=== PATIENT | female | born 1990 | race Caucasian/White ===

== ENCOUNTER 2024-02-05 15:09 | Emergency (ER) | payer OTHER ==
[2024-02-05 15:16] VITALS: BP 126/70; PULSE 62; RESP 18; TEMP 98.4; BMI 28.5
[2024-02-05 16:02] LABS: URINE APPEARANCE CLEAR; URINE BILIRUBIN NEGATIVE (NEGATIVE); URINE COLOR YELLOW; URINE GLUCOSE (UA) NEGATIVE (NEGATIVE); URINE KETONE NEGATIVE (NEGATIVE); URINE LEUK ESTERASE NEGATIVE (NEGATIVE); URINE NITRITE NEGATIVE (NEGATIVE); URINE PROTEIN NEGATIVE (NEGATIVE)
[2024-02-05 16:19] LABS: BASO % 0.2 % (0-2.0); EOS % 7.2 % (0-4.5); HEMATOCRIT 39.7 % (32.4-45.2); HEMOGLOBIN 13.5 GM/dL (10.7-15.3); LYMPH % 27.2 % (8-40); MCH 29.1 pg (25.7-33.7); MEAN CELL VOLUME 85.6 fl (80-96); MEAN PLT VOLUME 8.4 fl (7.5-11.1); MONO % 8.2 % (3.8-10.2); NEUT % 57.2 % (42.8-82.8); PLATELET COUNT 245 10^3/uL (134-434); RBC 4.63 M/mm3 (3.60-5.2); RDW 13.5 % (11.6-15.6); WHITE BLOOD COUNT 9.2 K/mm3 (4.0-10.0)
[2024-02-05 16:49] LABS: CREATININE 0.7 mg/dL (0.55-1.3)
[2024-02-05 16:51] LABS: BILIRUBIN,TOTAL 0.6 mg/dL (0.2-1); TOT PROT 7.4 g/dl (6.4-8.2)
== END 2024-02-05 17:21 | disposition home or self-care (01) ==
LOC: JER 15:09
DX: R53.1 Weakness (principal); R42 Dizziness and giddiness; R35.0 Frequency of micturition; Z20.822 Contact with and (suspected) exposure to COVID-19
CPT/HCPCS: 0241U-QW; 36415; 80053; 81003; 84443; 84703; 85025; 87086; 93005; 93010; 99284-25